=== PATIENT | female | born 1945 | race Caucasian/White ===

== ENCOUNTER 2019-12-20 05:22 | Day surgery (SDC) | payer MEDICARE, OTHER ==
[2019-12-13 11:05] LABS: BASOPHILS # (AUTO) 0.1 X10'3 (0-0.2); BASOPHILS % (AUTO) 0.7 % (0-1); EOSINOPHILS # (AUTO) 0.3 X10'3 (0-0.9); EOSINOPHILS % (AUTO) 3.9 % (0-6); LYMPHOCYTES # (AUTO) 3.1 X10'3 (1.1-4.8); LYMPHOCYTES % (AUTO) 36.3 % (21-51); MEAN CORPUSCULAR HEMOGLOBIN 29.7 PG (27.0-31.0); MEAN CORPUSCULAR HGB CONC 33.5 g/dL (33.0-36.5); MEAN CORPUSCULAR VOLUME 88.6 FL (78-98); MEAN PLATELET VOLUME 10.4 FL (7.4-10.4); MONOCYTES # (AUTO) 0.8 X10'3 (0-0.9); MONOCYTES % (AUTO) 9.8 % (2-12); NEUTROPHILS # (AUTO) 4.2 X10'3 (1.8-7.7); NEUTROPHILS % (AUTO) 49.3 % (42-75); PRE OP HEMATOCRIT 45.3 % (35.0-45.0); PRE OP HEMOGLOBIN 15.2 g/dL (12.0-16.0); PRE OP PLATELET COUNT 244 X10'3 (140-440); RED BLOOD COUNT 5.12 X10'6 (4.20-5.60); RED CELL DISTRIBUTION WIDTH 14.1 % (11.5-14.5)
[2019-12-13 11:24] LABS: ALBUMIN 3.9 G/DL (3.4-5.0); ALBUMIN/GLOBULIN RATIO 1.1 (1.1-1.5); ALKALINE PHOSPHATASE 48 IU/L (46-116); BLOOD UREA NITROGEN 19 MG/DL (7-18); BUN/CREATININE RATIO 20.9 (6.6-38.0); CALCIUM 9.5 MG/DL (8.5-10.1); CHLORIDE 109 MMOL/L (99-107); CREATININE 0.91 MG/DL (0.40-0.90); PRE OP ALT 41 U/L (30-65); PRE OP ANION GAP 8 (8-16); PRE OP AST 27 U/L (10-37); PRE OP BILIRUB, TOTAL 0.3 MG/DL (0.0-1.0); PRE OP GLUCOSE 96 MG/DL (70-104); PRE OP POTASSIUM 4.1 MMOL/L (3.4-5.1); PRE OP SODIUM 143 MMOL/L (135-145); TOTAL PROTEIN 7.3 G/DL (6.4-8.2); eGFR 60 ML/MIN
[~2019-12-20] VITALS: Ht 162.6 cm; Wt 54.0 kg
[2019-12-20] VITALS (7 sets, daily range): BP systolic 136–158; BP diastolic 68–75
[~2019-12-20 05:22] MED LIST: AMLO1TAB39 PO; ASPI-845 PO; ATOR10TA70 PO; CHOL20004 PO; CLOT30CR TOP; CRIS60OI TOP; DICL100G15 TOP; FENO67CA PO; LETR2.5T7 PO; LEVO150T PO; LORA-269 PO; MET0.75G TOP; METO50TA7 PO; OLOP2.5D EACHEYE; SEMA1PEN SQ; TOPI25TA49 PO; UBIQ100C3 PO
[2019-12-20] MEDS ORDERED: famotidine 20mg tablet PO ONE (05:30)
[2019-12-20] MEDS ORDERED: cefazolin/dext.iso 2gm/100ml 100 ML IV ONE (05:30)
[2019-12-20] MEDS ORDERED: DOCUMENT DATE & TIME OF BETA-BLOCKER PO ONE (05:30)
[2019-12-20] MEDS ORDERED: ringers solution, lacted 1,000 ML IV SCH (05:30)
[2019-12-20] MEDS ORDERED: LIDOcaine 1% (10mg/ml) 2ml vial ONE (05:48)
[2019-12-20] MEDS ORDERED: BUPIVAcaine/PF 2.5mg/ml (0.25%) 10ml vial ONE (06:39)
[2019-12-20] MEDS ORDERED: LIDOcaine 0.5% (5mg/ml) 50ml vial ONE (07:35)
[2019-12-20] MEDS ORDERED: fentaNYL/PF 50MCG/1 ML 2ML syringe ONE (07:36)
[2019-12-20] MEDS ORDERED: midazolam 2 mg/2 ml injection ONE (07:36)
[2019-12-20] MEDS ORDERED: ketamine 50mg/5ml syringe ONE (08:02)
[2019-12-20] MEDS ORDERED: labetalol 20mg/4ml (5mg/ml) syringe IV ONE (08:12)
--- NOTE | 2019-12-20 08:21 | NUR ---
Received from OR via , accompanied by Anesthesiologist MARIAM and report given by Anesthesiolgist. AWAKE IN NO RESP DISTRESS SKIN WARM AND DRY HOB AND RUE ELEVATED. DSG DI, FINGERS WARM PINK GOOD CAP REFILL. ICE TO WRIST AND THUMB. VS WNL,
--- NOTE | 2019-12-20 09:21 | NUR ---
AWAKE VS WNL, NO CO PAIN, TOLERATES LIQUIDS, DSG DI, FINGERS WARM PINK GOOD CAP REFILL AND MOVEMENT. DISCH INSTR GIVEN TO PT AND UNDERSTOOD. HOME WITH .
== END 2019-12-20 09:21 | disposition home or self-care (01) ==
LOC: PAS 05:22
PROVIDERS: ATTEND Orthopaedic Surgery Hand Surgery
DX: G56.01 Carpal tunnel syndrome, right upper limb (principal); M65.4 Radial styloid tenosynovitis [de Quervain]; E11.9 Type 2 diabetes mellitus without complications; E78.5 Hyperlipidemia, unspecified; Z85.3 Personal history of malignant neoplasm of breast; Z85.038 Personal history of other malignant neoplasm of large intestine; Z85.850 Personal history of malignant neoplasm of thyroid; Z87.891 Personal history of nicotine dependence; Z79.899 Other long term (current) drug therapy; Z79.82 Long term (current) use of aspirin; Z88.1 Allergy status to other antibiotic agents; Z88.2 Allergy status to sulfonamides; Z88.8 Allergy status to other drugs, medicaments and biological substances; Z90.710 Acquired absence of both cervix and uterus; Z98.890 Other specified postprocedural states; Z72.89 Other problems related to lifestyle
CPT/HCPCS: 25000; 36415; 64721; 80053; 82948; 85025; 93005; J2001; J2250; J3010; J3490; A4215; A4615; A6449; J7120

== ENCOUNTER → 2022-11-08 | Outpatient (CLI) | payer MEDICARE, OTHER ==
[~2022-11-08] MED LIST changes: -CLOT30CR TOP; +CLOT30CR19 TOP; -FENO67CA PO; +FENO67CA10 PO; -OLOP2.5D EACHEYE; +OLOP2.5D12 EACHEYE; +UBIQ100C2 PO; -UBIQ100C3 PO
== END | disposition home or self-care (01) ==
LOC: CARD DIAG 13:16
PROVIDERS: ATTEND Internal Medicine Cardiovascular Disease
DX: I08.0 Rheumatic disorders of both mitral and aortic valves (principal)
CPT/HCPCS: 93306

== ENCOUNTER 2022-12-12 05:54 | Day surgery (SDC) | payer MEDICARE, OTHER ==
[2022-12-11 10:03] LABS: BASOPHILS # (AUTO) 0.1 X10'3 (0-0.2); BASOPHILS % (AUTO) 1.1 % (0-1); EOSINOPHILS # (AUTO) 0.3 X10'3 (0-0.9); EOSINOPHILS % (AUTO) 3.5 % (0-6); HEMATOCRIT 43.7 % (35.0-45.0); HEMOGLOBIN 14.8 g/dl (12.0-16.0); LYMPHOCYTES # (AUTO) 2.5 X10'3 (1.1-4.8); LYMPHOCYTES % (AUTO) 30.3 % (21-51); MEAN CORPUSCULAR HEMOGLOBIN 29.6 PG (27.0-31.0); MEAN CORPUSCULAR HGB CONC 33.8 g/dL (33.0-36.5); MEAN CORPUSCULAR VOLUME 87.8 FL (78-98); MEAN PLATELET VOLUME 9.9 FL (7.4-10.4); MONOCYTES # (AUTO) 0.9 X10'3 (0-0.9); MONOCYTES % (AUTO) 11.3 % (2-12); NEUTROPHILS # (AUTO) 4.5 X10'3 (1.8-7.7); NEUTROPHILS % (AUTO) 53.8 % (42-75); PLATELET COUNT 210 X10'3 (140-440); RED BLOOD COUNT 4.98 X10'6 (4.20-5.60); RED CELL DISTRIBUTION WIDTH 14.2 % (11.5-14.5); WHITE BLOOD COUNT 8.3 X10'3 (4.5-11.0)
[2022-12-11 10:07] LABS: APTT 25 SECONDS (22-32)
[2022-12-11 10:09] LABS: ALBUMIN 3.9 G/DL (3.4-5.0); ANION GAP 8 (8-16); BLOOD UREA NITROGEN 16 MG/DL (7-18); BUN/CREATININE RATIO 17.6 (6.6-38.0); CALCIUM 9.8 MG/DL (8.5-10.1); CHLORIDE 110 MMOL/L (99-107); CREATININE 0.91 MG/DL (0.40-0.90); GLUCOSE 94 MG/DL (70-104); POTASSIUM 3.8 MMOL/L (3.5-5.1); SODIUM 142 MMOL/L (135-145); TOTAL CARBON DIOXIDE 24.4 MMOL/L (24-32); eGFR 60 ML/MIN
[2022-12-12] VITALS (12 sets, daily range): BP systolic 126–160; BP diastolic 61–83
[~2022-12-12] VITALS: Ht 162.6 cm; Wt 100.0 kg
[~2022-12-12 05:54] MED LIST changes: -FENO67CA10 PO; +FENO67CA14 PO
[2022-12-12] MEDS ORDERED: normal saline 1,000 ML IV SCH (06:30)
[2022-12-12] MEDS ORDERED: LORazepam 0.5 MG tablet PO PRN (06:30)
[2022-12-12] MEDS ORDERED: diphenhydrAMINE 25mg capsule PO PRN (06:30)
[2022-12-12] MEDS ORDERED: LEVO137T2 PO (06:50)
[2022-12-12] MEDS ORDERED: METO-384 PO (06:50)
[2022-12-12] MEDS ORDERED: FENO145T26 PO (06:50)
[2022-12-12] MEDS ORDERED: ATOR20TA66 PO (06:50)
[2022-12-12] MEDS ORDERED: nitroGLYCERIN-Tridil 50MG/D5W 250 ML IV ONE (07:21)
[2022-12-12] MEDS ORDERED: midazolam 1 mg/ML 2ml injection ONE (07:21)
[2022-12-12] MEDS ORDERED: verapamil 2.5 mg/ml inj IV ONE (07:21)
[2022-12-12] MEDS ORDERED: fentaNYL/PF 50MCG/1 ML 2ML syringe ONE (07:21)
[2022-12-12] MEDS ORDERED: iohexol 350 MG/ML 50ML vial IV ONE (07:21)
[2022-12-12] MEDS ORDERED: heparin 1,000unit/ml 10ml vial 10 ML ONE (07:21)
[2022-12-12] MEDS ORDERED: iohexol 350MG/ML 100ml bottle IV ONE ×2 (07:21→08:53)
[2022-12-12] MEDS ORDERED: LIDOcaine 1% (10mg/ml) 2ml vial ONE (07:21)
[2022-12-12] MEDS ORDERED: normal saline 1000ml 1,000 ML IV SCH (10:15)
[2022-12-13 06:15] LABS: ISTAT HGB ART 12.2 g/dl (12.0-16.0); ISTAT Hct ART 36 %PCV (35-45); ISTAT O2 SATURATION ARTERIAL 96 % (95-98); ISTAT SOURCE BLNK
[2022-12-13 06:16] LABS: ISTAT Hct MIX 38 %PCV (35-45); ISTAT O2 SATURATION MIX VENOUS 70 % (60-80); ISTAT SOURCE VEN
[2022-12-13 06:16] LABS: ISTAT HGB ART 13.6 g/dl (12.0-16.0); ISTAT Hct ART 40 %PCV (35-45); ISTAT O2 SATURATION ARTERIAL 96 % (95-98); ISTAT SOURCE BLNK
== END 2022-12-12 14:55 | disposition home or self-care (01) ==
LOC: SSTAY O 05:54
PROVIDERS: ATTEND Internal Medicine Cardiovascular Disease
DX: I25.10 Atherosclerotic heart disease of native coronary artery without angina pectoris (principal); I35.0 Nonrheumatic aortic (valve) stenosis; I10 Essential (primary) hypertension; E11.9 Type 2 diabetes mellitus without complications; E78.5 Hyperlipidemia, unspecified; M19.90 Unspecified osteoarthritis, unspecified site; G47.33 Obstructive sleep apnea (adult) (pediatric); E03.9 Hypothyroidism, unspecified; E66.9 Obesity, unspecified; Z68.38 Body mass index [BMI] 38.0-38.9, adult; Z79.82 Long term (current) use of aspirin; Z79.899 Other long term (current) drug therapy; Z85.3 Personal history of malignant neoplasm of breast; Z87.442 Personal history of urinary calculi; Z96.651 Presence of right artificial knee joint; Z98.890 Other specified postprocedural states; Z90.49 Acquired absence of other specified parts of digestive tract; Z87.891 Personal history of nicotine dependence; Z72.89 Other problems related to lifestyle; Z88.1 Allergy status to other antibiotic agents; Z88.8 Allergy status to other drugs, medicaments and biological substances; Z88.2 Allergy status to sulfonamides; Z91.040 Latex allergy status; Z82.49 Family history of ischemic heart disease and other diseases of the circulatory system
CPT/HCPCS: 36415; 76937; 80048; 82803; 82948; 85014; 85025; 85610; 85730; 93460; 99152; 99153; C1751; C1769; C1894; J1644; J2250; J3010; J3490; J7030; Q0163; Q9967; A6258; C1725

== ENCOUNTER 2023-03-21 09:26 | Outpatient (CLI) | payer MEDICARE, OTHER ==
[~2023-03-21 09:26] MED LIST changes: -ATOR10TA70 PO; +ATOR20TA66 PO; -CRIS60OI TOP; +FENO145T26 PO; -FENO67CA14 PO; +LEVO137T2 PO; -LEVO150T PO; +METO-384 PO; -OLOP2.5D12 EACHEYE; -UBIQ100C2 PO
[2023-03-21] MEDS ORDERED: IODIXANOL 320 MG/ML INFUS..BTL 100ML IV ONE (11:15)
== END 2023-03-21 23:59 | disposition home or self-care (01) ==
LOC: RAD 09:26
PROVIDERS: ATTEND Internal Medicine Cardiovascular Disease
DX: K76.0 Fatty (change of) liver, not elsewhere classified (principal); I65.23 Occlusion and stenosis of bilateral carotid arteries; I35.0 Nonrheumatic aortic (valve) stenosis; R06.02 Shortness of breath; I25.10 Atherosclerotic heart disease of native coronary artery without angina pectoris; J43.2 Centrilobular emphysema; J98.11 Atelectasis; R16.0 Hepatomegaly, not elsewhere classified; N28.1 Cyst of kidney, acquired; K42.9 Umbilical hernia without obstruction or gangrene; K57.30 Diverticulosis of large intestine without perforation or abscess without bleeding; N28.89 Other specified disorders of kidney and ureter; M47.815 Spondylosis without myelopathy or radiculopathy, thoracolumbar region; Z90.710 Acquired absence of both cervix and uterus
CPT/HCPCS: 71046; 71275; 74174; 93880; 94010; 94727; 94729; J3490; Q9967

== ENCOUNTER 2023-04-03 14:56 | Outpatient (CLI) | payer MEDICARE, OTHER ==
[2023-03-21 10:24] LABS: BASOPHILS # (AUTO) 0.1 X10'3 (0-0.2); BASOPHILS % (AUTO) 0.5 % (0-1); EOSINOPHILS % (AUTO) 0.1 % (0-6); HEMATOCRIT 44.3 % (35.0-45.0); HEMOGLOBIN 14.5 g/dl (12.0-16.0); LYMPHOCYTES # (AUTO) 2.4 X10'3 (1.1-4.8); LYMPHOCYTES % (AUTO) 17.8 % (21-51); MEAN CORPUSCULAR HEMOGLOBIN 29.2 PG (27.0-31.0); MEAN CORPUSCULAR HGB CONC 32.7 g/dL (33.0-36.5); MEAN CORPUSCULAR VOLUME 89.3 FL (78-98); MEAN PLATELET VOLUME 10.4 FL (7.4-10.4); MONOCYTES % (AUTO) 7.6 % (2-12); NEUTROPHILS # (AUTO) 9.9 X10'3 (1.8-7.7); PLATELET COUNT 258 X10'3 (140-440); RED BLOOD COUNT 4.97 X10'6 (4.20-5.60); RED CELL DISTRIBUTION WIDTH 14.5 % (11.5-14.5); WHITE BLOOD COUNT 13.4 X10'3 (4.5-11.0)
[2023-03-21 10:34] LABS: APTT 25 SECONDS (22-32)
[2023-03-21 10:43] LABS: ALANINE AMINOTRANSFERASE 37 U/L (12-78); ALBUMIN 4.1 G/DL (3.4-5.0); ALBUMIN/GLOBULIN RATIO 1.3 (1.1-1.5); ALKALINE PHOSPHATASE 50 IU/L (46-116); ANION GAP 13 (8-16); ASPARTATE AMINO TRANSFERASE 23 U/L (10-37); BILIRUBIN,TOTAL 0.3 MG/DL (0.1-1.0); BLOOD UREA NITROGEN 22 MG/DL (7-18); BUN/CREATININE RATIO 19.5 (10.0-20.0); CALCIUM 9.2 MG/DL (8.5-10.1); CHLORIDE 106 MMOL/L (99-107); CREATININE 1.13 MG/DL (0.40-0.90); GLUCOSE 142 MG/DL (70-104); SODIUM 140 MMOL/L (135-145); TOTAL CARBON DIOXIDE 21.5 MMOL/L (24-32); TOTAL PROTEIN 7.3 G/DL (6.4-8.2); eGFR 46 ML/MIN
[~2023-04-03] VITALS: Ht 160 cm; Wt 101.6 kg
[2023-04-03 15:44] VITALS: BP 159/82
--- NOTE | 2023-04-03 15:46 | NUR ---
Patient and Skip were in the [facility] clinic today to consult with Dr. Echevarria, Dr. Niko Springer and Dr. Gan. [facility] Walk test completed. Vital signs measured. Patient education reviewed and questions answered.
== END 2023-04-03 23:59 | disposition home or self-care (01) ==
LOC: TAVR 14:56
PROVIDERS: ATTEND Internal Medicine Cardiovascular Disease
DX: I35.0 Nonrheumatic aortic (valve) stenosis (principal); R06.02 Shortness of breath; I65.29 Occlusion and stenosis of unspecified carotid artery
CPT/HCPCS: 36415; 80053; 83880; 85025; 85610; 85730

== ENCOUNTER 2023-04-15 09:12 | Outpatient (CLI) | payer MEDICARE, OTHER | END 2023-04-15 23:59 | disposition home or self-care (01) | LOC: CARD DIAG 09:12 | PROVIDERS: ATTEND Internal Medicine Cardiovascular Disease | DX: I08.8 Other rheumatic multiple valve diseases (principal); R06.02 Shortness of breath; I65.29 Occlusion and stenosis of unspecified carotid artery | CPT/HCPCS: 93306 ==